=== PATIENT | female | born 1980 | race Caucasian/White ===

== ENCOUNTER 2022-05-03 10:38 | Inpatient (IN) | payer BC ==
[~2022-05-03] VITALS: Ht 162.6 cm; Wt 75.9 kg
[2022-05-08] VITALS (33 sets, daily range): BP systolic 92–170; BP diastolic 50–83; PULSE 48–74; TEMP 97.4–98.2
--- NOTE | 2022-05-08 07:05 | NUR ---
PT AMBULATORY TO UNIT FOR SCHEDULE IOL. DENIES LEAKING OF FLUID, REPORTS INTERMITTENT IRREGULAR CONTRACTIONS X1 WEEK, REPORTS POSITIVE MOVEMENT. PT ORIENTED TO LABOR ROOM AND POC. PLACED ON EFM/TOCO. CATEGORY 1 EFM TRACING, MATERNAL VITAL SIGNS STABLE. WILL CONTINUE WITH POC PER PROTOCOL
[2022-05-08 07:51] LABS: BASO % 0.5 % (0.0-2.0); EOS # 0.1 K/mm3 (0.0-0.7); EOS % 1.3 % (0.0-4.0); GRAN # 5.2 K/mm3 (1.4-6.5); GRAN % 65.2 % (42.2-75.2); HEMOGLOBIN 11.5 g/dl (12.5-16.0); LYMPH % 24.6 % (20.0-51.0); MEAN CELL VOLUME 90 fl (80.0-100.0); MEAN CORPUSCULAR HEMOGLOBIN 30 pg (27-31); MEAN CORPUSCULAR HGB CONC 34 g/dl (33.0-37.0); MEAN PLATELET VOLUME 10.3 fl (7.4-10.4); MONO # 0.6 K/mm3 (0.1-0.6); MONO % 7.9 % (1.7-9.3); PLATELET COUNT 211 K/mm3 (130-400); RED BLOOD COUNT 3.81 M/mm3 (4.10-5.30); REDCELL DISTRIBUTION WIDTH-CV 13.2 % (11.5-14.5)
[2022-05-08 07:57] LABS: HEMATOCRIT 34.3 % (37.0-47.0)
[2022-05-08] MEDS ORDERED: ASPIRIN 81M81 MG/TA2 PO (08:07)
[2022-05-08] MEDS ORDERED: PRENATAL (08:07)
--- NOTE | 2022-05-08 09:08 | NUR ---
AT BEDSIDE. SVE /-1. AROM WITH CLEAR FLUID @ 0908. PT TOLERATED PROCEDURE WELL. CATEGORY 1 EFM TRACING. MATERNAL VITAL SIGNS STABLE
--- NOTE | 2022-05-08 09:37 | NUR ---
WILBERT JENKINS AT BEDSIDE. LR BOLUS INFUSING PER PROTOCOL. CATEGORY 1 EFM TRACING. PT TO SITTING POSITION FOR EPIDURAL PLACEMENT. DIFFICULTY TRACING EFM DUE TO MATERNAL POSITIONING. 0937: SINGLE SHOT PER ALICE ATKINS. PT TOLERATED PROCEDURE WELL. MATERNAL VITAL SIGNS REMAIN STABLE. CATEGORY 1 EFM TRACING FOLLOWING PROCEDURE.
--- NOTE | 2022-05-08 13:45 | NUR ---
1325: AT BEDSIDE. PT C/O INCREASED PRESSURE. DENIES URGE TO PUSH. SVE COMPLETE/0 STATION. BLOODY SHOW. ROOM PREPARED FOR DELIVERY. REMAINS AT BEDSIDE DUE TO INTERMITTENT DECREASED HEART TONES WITH CONTRACTIONS. 1345: OF VIABLE FEMALE INFANT. NUCHAL X1 NOTED. INFANT PLACED ON MATERNAL ABDOMEN, CORD CLAMPED X2 AND CUT BY FOB. STRONG CRY NOTED. MATERNAL VITAL SIGNS STABLE. CARE OF ASSUMED BY PAOLA BRAN. 1349: OF PLACENTA. PITOCIN BOLUS INFUSING PER PROTOCOL. BEGINS REPAIR OF SECOND DEGREE PERINEAL LACERATION. LOCHIA WNL. FUNDUS FIRM AT UMBILICUS. PT IN STABLE CONDIITON. WILL CONTINUE WITH PP CARES PER PROTOCOL.
--- NOTE | 2022-05-08 16:15 | NUR ---
PT REPORTS FULL SENSATION TO LLE, PARTIAL SENSATION TO RLE. FUNDUS FIRM AT UMBILIUS. LOCHIA SCANT, NO CLOTS WITH FUNDAL MASSAGE. VITAL SIGNS STABLE. PT TO SITTING POSITION WITH LEGS DANGLING OFF SIDE OF BED. DENIES LIGHT HEADEDNESS. EPIDURAL CATHETER REMOVED. ASSISTED TO RESTROOM USING [employer]. VALE CARE, NEW PAD, ICE PACK, NEW GOWN AND MESH UNDERWEAR PROVIDED. PT VOIDS 350CC OF BLOOD TINGED URINE. PT TO ROOM 214 VIA [employer] TO CONTINUE PP RECOVERY.
[2022-05-09 04:30] VITALS: BP 104/47; PULSE 57; TEMP 97.8
[2022-05-09 08:20] VITALS: BP 106/61; PULSE 59; TEMP 98
[2022-05-09] MEDS ORDERED: ROXICODONE 55 MG/TAB PO (09:07)
[2022-05-09] MEDS ORDERED: IBU600 MG PO (09:07)
== END 2022-05-09 16:15 | disposition home or self-care (01) | DRG 807 ==
LOC: OB 05-08 06:49 → LDR 05-08 06:49 → OB 05-08 10:38
PROVIDERS: ADMIT Obstetrics & Gynecology
PROC: 10E0XZZ Delivery of Products of Conception, External Approach (ICD-10-PCS; principal; 2022-05-08)
PROC: 0KQM0ZZ Repair Perineum Muscle, Open Approach (ICD-10-PCS; 2022-05-08)
PROC: 10907ZC Drainage of Amniotic Fluid, Therapeutic from Products of Conception, Via Natural or Artificial Opening (ICD-10-PCS; 2022-05-08)
PROC: 3E033VJ Introduction of Other Hormone into Peripheral Vein, Percutaneous Approach (ICD-10-PCS; 2022-05-08)
DX: O99.02 Anemia complicating childbirth (principal); Z37.0 Single live birth; O69.81X0 Labor and delivery complicated by cord around neck, without compression, not applicable or unspecified; O70.1 Second degree perineal laceration during delivery; D64.9 Anemia, unspecified; Z3A.38 38 weeks gestation of pregnancy; Z86.16 Personal history of COVID-19; Z23 Encounter for immunization
CPT/HCPCS: J2590; J2795; J7120